=== PATIENT | male | born 1965 | race Caucasian/White ===

== ENCOUNTER 2022-03-13 07:43 | Day surgery (SDC) | payer BC ==
[2022-03-10 13:43] VITALS: BMI 25.5
[2022-03-13] MEDS ORDERED: MIDAZOLAM HCL 2 MG/2 ML SINGLE DOSE VIAL ONE (09:05)
[2022-03-13] MEDS ORDERED: BUPIVACAINE HCL 100 ML ONE (09:34)
[2022-03-13] MEDS ORDERED: oxyCODONE HCL 5 MG TABLET PO PRN (10:16)
[2022-03-13] MEDS ORDERED: PROMETHAZINE HCL 25 MG/1 ML VIAL IVPUSH PRN (10:16)
[2022-03-13] MEDS ORDERED: ONDANSETRON 4 MG/2 ML VIAL IVPUSH PRN (10:16)
[2022-03-13] MEDS ORDERED: FENTANYL CITRATE/PF 50 MCG/ML VIAL ONE ×2 (10:23→10:42)
[2022-03-13] MEDS ORDERED: LACTATED RINGERS SOLUTION 1,000 ML IV SCH (10:30)
[2022-03-13] MEDS ORDERED: ACETAMINOPHEN 1000 MG/100 ML BAG IVPB ONE (10:44)
[2022-03-13] MEDS ORDERED: traMADol HCL 50 MG TABLET PO ONE (10:44)
[2022-03-13] MEDS ORDERED: ACETAMINOPHEN INJECTION 100 ML IVPB ONE (11:00)
[2022-03-13 12:18] VITALS: RESP 20; TEMP 97.6
[2022-03-13 13:02] VITALS: BP 117/77; PULSE 68
== END 2022-03-13 12:47 | disposition home or self-care (01) ==
LOC: FASU 07:43
PROVIDERS: ATTEND Orthopaedic Surgery
PROC: 0SBD4ZZ Excision of Left Knee Joint, Percutaneous Endoscopic Approach (ICD-10-PCS; principal; 2022-03-13 09:41)
DX: S83.282A Other tear of lateral meniscus, current injury, left knee, initial encounter (principal); M25.562 Pain in left knee; M17.12 Unilateral primary osteoarthritis, left knee
CPT/HCPCS: 94760